=== PATIENT | female | born 1960 | race Caucasian/White ===

== ENCOUNTER 2019-04-30 06:00 | Day surgery (SDC) | payer OTHER ==
[~2019-04-30] VITALS: Ht 170.2 cm; Wt 70.7 kg
[~2019-04-30 06:00] MED LIST: ACYC200 PO; ALLEGRA ALLERG180 MG PO; ALPR.5 PO; ALPR1 PO; DULO30 PO; ESCI10 PO; ESTR1 PO; Estradiol1 MG PO; FEXPSEER PO; GABA300 PO; LEVFLO500 PO; Lexapro 10 mg T10 MG PO; NORT10 PO; ONDA4 PO; ONDA8ODT MM; OXYACE5T PO; PREG100 PO; SOLI5 PO; VENLAFAXINE HCL PO; VERA180ERB PO; Vitamin D400 UNI1 PO
[2019-04-30] MEDS ORDERED: LORA.5 PO (06:26)
[2019-04-30] MEDS ORDERED: OMEGA DHA92 MG PO (06:26)
[2019-04-30] MEDS ORDERED: VITAMIN E200 UNI2 PO (06:27)
[2019-04-30] MEDS ORDERED: BIOTIN5000 MC1 SL (06:27)
[2019-04-30] MEDS ORDERED: CYAN500 PO (06:28)
--- NOTE | 2019-04-30 07:00 | NUR ---
History, Chart, Medications and Allergies reviewed before start of procedure. Lungs clear T/O to Auscultation. Patient confirms NPO status and agrees with scheduled surgery. Patient reports completing Chlorhexadine shower X2 prior to admission to hospital.Pre-Op teaching done. Pt verbalizes understanding.
--- NOTE | 2019-04-30 09:32 | NUR ---
INTO STEP VIA [facility]. PT A&OX3. REPORTS 2/10 ABDOMINAL PAIN. DENIES NAUSEA AT PRESENT. PT HAS SCOPALAMINE PATCH IN PLACE AND RECEIVED SEVERAL MEDICATIONS FOR NAUSEA IN PACU-SEE EMAR. MIDLINE ABDOMINAL DRESSING D&I.PT TOLERATING FEW ICE CHIPS WELL.
--- NOTE | 2019-04-30 09:52 | NUR ---
PT APPEARS TO BE SLEEPING WHEN NOT DISTURBED. VS REMAIN WDL.
--- NOTE | 2019-04-30 11:30 | NUR ---
Patient up to Ambulate independently. Gait steady. STANDBY ASSIST TO/FROM BR. VOIDS PRIOR TO DC. Discharge instructions reviewed with patient. Patient verbalizes understanding. Copy given to patient to take home. Patient States Post-Procedure ride home has been arranged. Discharged via wheelchair to private car for ride home.
== END 2019-04-30 22:41 | disposition home or self-care (01) ==
LOC: ORSCMMR 06:00 → ORD 07:30 → ORSCMMR 22:41
PROVIDERS: Surgery
PROC: 0WUF0JZ Supplement Abdominal Wall with Synthetic Substitute, Open Approach (ICD-10-PCS; principal; 2019-04-30 07:30)
DX: K43.2 Incisional hernia without obstruction or gangrene (principal); Z87.891 Personal history of nicotine dependence; Z79.899 Other long term (current) drug therapy
CPT/HCPCS: A9270-GY; C1781; J0690; J1100; J2250; J2405; J2550; J2704; J2710; J2765; J3010; J7120

== ENCOUNTER 2019-09-13 14:01 | Emergency (ER) | payer OTHER ==
[~2019-09-13] VITALS: Ht 170.2 cm; Wt 64.9 kg
[~2019-09-13 14:01] MED LIST changes: +BIOTIN5000 MC1 SL; +CYAN500 PO; +LORA.5 PO; +OMEGA DHA92 MG PO; +VITAMIN E200 UNI2 PO
[2019-09-13] MEDS ORDERED: ONDA4ODT MM (14:40)
[2019-09-13] MEDS ORDERED: Norco 5-325 Ta1 EACH PO (14:40)
== END 2019-09-13 15:12 | disposition home or self-care (01) ==
LOC: ER 14:01
DX: S52.511A Displaced fracture of right radial styloid process, initial encounter for closed fracture (principal); S52.611A Displaced fracture of right ulna styloid process, initial encounter for closed fracture; W10.9XXA Fall (on) (from) unspecified stairs and steps, initial encounter
CPT/HCPCS: 29125; 73110; 96372-59; 99283-25; J3010

== ENCOUNTER → 2022-11-16 | Outpatient (CLI) | payer OTHER ==
[~2022-11-16] MED LIST changes: +Norco 5-325 Ta1 EACH PO; +ONDA4ODT MM
[2022-11-16 16:53] LABS: BASOPHILS ABSOLUTE AUTO 0.04 K/mm3 (0.00-0.23); BASOPHILS PERCENT AUTO 1 % (0-2); EOSINOPHILS ABSOLUTE AUTO 0.26 K/mm3 (0.00-0.68); EOSINOPHILS PERCENT AUTO 3 % (0-6); Hematocrit 39.1 % (33.0-51.0); Hemoglobin 13.4 g/dL (11.5-16.0); IMMATURE GRAN ABSOLUTE AUTO 0.02 K/mm3 (0.00-0.10); IMMATURE GRAN PERCENT AUTO 0 % (0-1); LYMPHOCYTES ABSOLUTE AUTO 1.54 K/mm3 (0.84-5.20); LYMPHOCYTES PERCENT AUTO 20 % (21-46); MONOCYTES ABSOLUTE AUTO 0.73 K/mm3 (0.16-1.47); MONOCYTES PERCENT AUTO 10 % (4-13); Mean Corpuscular HGB 32.4 pg (26.0-34.0); Mean Corpuscular HGB Conc 34.3 g/dL (31.5-36.5); Mean Corpuscular Volume 95 fL (80-100); NEUTROPHILS ABSOLUTE AUTO 5.09 K/mm3 (1.96-9.15); NEUTROPHILS PERCENT AUTO 66 % (41-73); Platelet Count 289 K/mm3 (150-400); RDW Coefficient Variation 12.3 % (11.7-14.2); RDW Standard Deviation 42.8 fL (35.1-46.3); Red Blood Cell Count 4.13 M/mm3 (3.80-5.20); White Blood Cell Count 7.68 K/mm3 (4.00-11.30)
[2022-11-16 17:05] LABS: Albumin/Globulin Ratio 1.1 (0.8-1.8); Bilirubin, Total 0.2 mg/dL (0.1-1.0); Bun/Creatinine Ratio 22.2 (12.0-20.0); Calcium, Blood 9.4 mg/dL (8.5-10.1); Creatinine, Blood 0.63 mg/dL (0.40-1.00); Globulin, Blood 3.8 g/dL (2.2-4.0); Potassium, Blood 4.2 mmol/L (3.5-5.5); Total Protein, Blood 7.8 g/dL (6.4-8.2)
== END | disposition home or self-care (01) ==
LOC: LAB SHORT 16:47 → LAB 16:47
PROVIDERS: Emergency Medicine
DX: R10.9 Unspecified abdominal pain (principal)
CPT/HCPCS: 80053; 83690; 84484; 85025